=== PATIENT | female | born 2000 ===

== ENCOUNTER 2020-01-07 14:53 | Observation (INO) | payer BC ==
[2020-01-07] MEDS ORDERED: Terbutaline 1 MG/ML SDV SUBCUT PRN (15:30)
[2020-01-07] MEDS ORDERED: Sodium Chloride 0.9% 10 ML Syringe FLUSH PRN (15:30)
[2020-01-07] MEDS ORDERED: Lidocaine 1% 50 ML MDV INJECT PRN (15:30)
[2020-01-07] MEDS ORDERED: Nalbuphine 10 MG/1 ML Vial IVPUSH PRN (15:30)
[2020-01-07] MEDS ORDERED: Sodium Chloride 0.9% 2.5 ML Syringe FLUSH PRN (15:30)
[2020-01-07] MEDS ORDERED: Oxytocin/0.9 % Sodium Chloride 30 UNIT/500 ML BAG IV SCH ×2 (15:30)
[2020-01-07] MEDS ORDERED: Methylergonovine 0.2 MG/1 ML Amp IM PRN (15:30)
[2020-01-07] MEDS ORDERED: Carboprost Tromethamine 250 MCG/1 ML Amp IM PRN (15:30)
[2020-01-07] MEDS ORDERED: Misoprostol 200 MCG Tab PO PRN (15:30)
[2020-01-07] MEDS ORDERED: Sodium Chloride 0.9% 10 ML SDV IV PRN (15:30)
[2020-01-07] MEDS ORDERED: Butorphanol 1 MG/ML SDV IVPUSH PRN (15:30)
[2020-01-07] MEDS ORDERED: Water For Irrigation,Sterile 1,000 ML Container IRR PRN (15:30)
[2020-01-07] MEDS ORDERED: Tranexamic Acid 1,000 MG in Sodium Chloride 0.9% 100 ML IV PRN (15:30)
[2020-01-07] MEDS: Misoprostol 25 MCG (1/4 of 100 MCG) Tab VAG PRN (16:22)
[2020-01-07] MEDS: Misoprostol 25 MCG (1/4 of 100 MCG) Tab PO PRN (16:22)
--- NOTE | 2020-01-07 16:31 | PCM.LDHP ---
L&D History of Present Illness - General Date of Service: 01/07/20 Admit Problem/Dx: Patient Status Order with Admit Dx/Problem 01/07/20 15:31 Patient Status [ADT] Routine Admission Diagnosis/Problem Admission Diagnosis/Problem - planned 01/07/20 16:27 19yo EDC 01/21/2020 38 0/7wks IOL due to elevated BP. B+, RI, GBS neg. Source of Information: Patient History Limitations: Reports: No Limitations - History of Present Illness Improves with: Reports: None Worsens with: Reports: None Associated Symptoms: Reports: N - Related Data Allergies/Adverse Reactions: Allergies Allergy/AdvReac Type Severity Reaction Status Date / Time No Known Allergies Allergy Verified 11/24/19 12:57 Home Medications: Home Meds Vits #93/Iron Fum/FA [ Formula Tablet] 1 each PO DAILY [History] H&P Review of Systems - Review of Systems: Review Of Systems: See Below General: Reports: No Symptoms HEENT: Reports: No Symptoms Pulmonary: Reports: No Symptoms Cardiovascular: Reports: No Symptoms Gastrointestinal: Reports: No Symptoms Genitourinary: Reports: No Symptoms Musculoskeletal: Reports: No Symptoms Skin: Reports: No Symptoms Psychiatric: Reports: No Symptoms Neurological: Reports: No Symptoms Hematologic/Lymphatic: Reports: No Symptoms Immunologic: Reports: No Symptoms L&D Exam - Exam Exam: See Below - Vital Signs Weight: 107.955 kg - OB Specific Contraction Intensity: Mild Movement: Active Heart Tones: Present Heart Tones per Min: 140 Heart Rate (FHR) Variability: Moderate (6-25 bmp) Presentation: Vertex - Vazquez Score Vazquez Score Cervix Position: Midposition Vazquez Score Consistency: Soft Vazquez Score Effacement: 51-70% Vazquez Score Dilation: Closed Vazquez Score Infant's Station: -2 Vazquez Score Total: 6 - Exam General: Alert, Oriented, Cooperative HEENT: Hearing Intact Lungs: Clear to Auscultation, Normal Respiratory Effort. No: Decreased Breath Sounds Cardiovascular: Regular Rate, Regular Rhythm, Normal S1, Normal S2 GI/Abdominal Exam: Soft, Non-Tender Rectal Exam: Deferred Genitourinary: Normal external exam, Normal bimanual exam. No: Cervical fluid, Vaginal bleeding Back Exam: Normal Inspection, Full Range of Motion Extremities: Normal Inspection, Normal Range of Motion, Non-Tender, No Pedal Edema Skin: Warm, Dry, Intact Neurological: Cranial Nerves Intact, Reflexes Equal Bilateral, Normal Speech, Normal Tone, Sensation Intact Psychiatric: Alert, Normal Affect, Normal Mood - Patient Data Lab Results Last 24 hrs: Laboratory Results - last 24 hr 01/07/20 Range/Units 15:20 WBC 9.30 (4.0-11.0) K/uL RBC 5.11 (4.30-5.90) M/uL Hgb 12.9 (12.0-16.0) g/dL Hct 39.9 (36.0-46.0) % MCV 78.1 L (80.0-98.0) fL MCH 25.2 L (27.0-32.0) pg MCHC 32.3 (31.0-37.0) g/dL RDW Std Deviation 39.6 (28.0-62.0) fl RDW Coeff of [place] 14 (11.0-15.0) % Plt Count 284 (150-400) K/uL MPV 9.50 (7.40-12.00) fL Nucleated RBC % 0.0 /100WBC Nucleated RBCs # 0 K/uL Result Diagrams: 01/07/20 15:20 - Problem List (1) Supervision of normal IUP (intrauterine ) in primigravida SNOMED Code(s): 61757958, 176473957, 684825665, 906850126 ICD Code: Z34.00 - ENCNTR FOR SUPRVSN OF NORMAL FIRST , UNSP TRIMESTER Status: Acute Priority: High Current Visit: Yes Qualifiers: Trimester: third trimester Qualified Code(s): Z34.03 - Encounter for supervision of normal first , third trimester (2) Elevated blood pressure affecting in third trimester, antepartum SNOMED Code(s): 57250379, 68307902, 159543099 ICD Code: O16.3 - UNSPECIFIED MATERNAL HYPERTENSION, THIRD TRIMESTER Status : Acute Priority: High Current Visit: Yes Problem List Initiated/Reviewed/Updated: Yes Orders Last 24hrs: Active Orders 24 hr Category Date Time Status Patient Status [ADT] Routine ADT 01/07/20 15:31 Active Communication Order [RC] ASDIRECTED Care 01/07/20 15:31 Active Communication Order [RC] ASDIRECTED Care 01/07/20 15:31 Active Communication Order [RC] ASDIRECTED Care 01/07/20 15:31 Active Heart Tones [RC] CONTINUOUS Care 01/07/20 15:31 Active Non Stress Test [RC] PER UNIT ROUTINE Care 01/07/20 15:31 Active May Shower [RC] ASDIRECTED Care 01/07/20 15:31 Active Notify Provider [RC] PRN Care 01/07/20 15:31 Active Notify Provider [RC] PRN Care 01/07/20 15:31 Active Notify Provider [RC] PRN Care 01/07/20 15:31 Active Notify Provider [RC] STAT Care 01/07/20 15:31 Active Oxygen Therapy [RC] ASDIRECTED Care 01/07/20 15:31 Active Up ad [place]ah [RC] ASDIRECTED Care 01/07/20 15:31 Active Vaginal Exam [RC] PRN Care 01/07/20 15:31 Active Vital Signs [RC] PER UNIT ROUTINE Care 01/07/20 15:31 Active Regular Diet [DIET] Diet 01/07/20 Dinner Active RPR (SYPHILIS SERO) W/ RFLX [REF] Routine Lab 01/07/20 15:20 Received TYPE AND SCREEN [BBK] Routine Lab 01/07/20 15:20 Received Butorphanol [Stadol] Med 01/07/20 15:30 Active 1 mg IVPUSH Q1H PRN Carboprost Tromethamine [Hemabate DS] Med 01/07/20 15:30 Active 250 mcg IM ASDIRECTED PRN Lactated Ringers [Ringers, Lactated] 1,000 ml Med 01/07/20 15:30 Active IV ASDIRECTED Lidocaine 1% [Xylocaine 1%] Med 01/07/20 15:30 Active 50 ml INJECT ONETIME PRN Methylergonovine [Methergine] Med 01/07/20 15:30 Active 0.2 mg IM ASDIRECTED PRN Nalbuphine [Nubain] Med 01/07/20 15:30 Active 10 mg IVPUSH Q1H PRN Oxytocin/0.9 % Sodium Chloride [Oxytocin 30 Unit/500 ML Med 01/07/20 15:30 Active -NS] 30 unit in 500 ml IV TITRATE Oxytocin/0.9 % Sodium Chloride [Oxytocin 30 Unit/500 ML Med 01/07/20 15:30 Active -NS] 30 unit in 500 ml IV TITRATE Sodium Chloride 0.9% [Normal Saline] Med 01/07/20 15:30 Active 10 ml IV ASDIRECTED PRN Sodium Chloride 0.9% [Saline Flush] Med 01/07/20 15:30 Active 10 ml FLUSH ASDIRECTED PRN Sodium Chloride 0.9% [Saline Flush] Med 01/07/20 15:30 Active 2.5 ml FLUSH ASDIRECTED PRN Terbutaline [Brethine] Med 01/07/20 15:30 Active 0.25 mg SUBCUT ASDIRECTED PRN Tranexamic Acid [Cyklokapron] 1,000 mg Med 01/07/20 15:30 Active Sodium Chloride 0.9% [Normal Saline] 100 ml IV ONETIME Water For Irrigation,Sterile [Sterile Water for Med 01/07/20 15:30 Active Irrigation] 1,000 ml IRR ASDIRECTED PRN miSOPROStoL [Cytotec] Med 01/07/20 15:30 Active 200 mcg PO ONETIME PRN miSOPROStoL [Cytotec] Med 01/07/20 15:30 Active 25 mcg PO Q4H PRN miSOPROStoL [Cytotec] Med 01/07/20 15:30 Active 25 mcg VAG Q4H PRN Scalp Electrode [WOMSER] Per Unit Routine Oth 01/07/20 15:31 Ordered Medication Administration Instruction [OM.PC] Q3H Oth 01/07/20 15:45 Ordered Peripheral IV Insertion Adult [OM.PC] Routine Oth 01/07/20 15:31 Ordered Resuscitation Status Routine Resus Stat 01/07/20 15:30 Ordered Medication Orders Butorphanol Tartrate (Stadol) 1 mg IVPUSH Q1H PRN PRN Reason: Pain Carboprost Tromethamine (Hemabate Ds) 250 mcg IM ASDIRECTED PRN PRN Reason: Post Hemorrhage Lactated Ringer's (Ringers, Lactated) 1,000 mls @ 150 mls/hr IV ASDIRECTED ASIYA Oxytocin/Sodium Chloride (Oxytocin 30 Unit/500 Ml-Ns) 30 unit in 500 mls @ 500 mls/hr IV TITRATE ASIYA Oxytocin/Sodium Chloride (Oxytocin 30 Unit/500 Ml-Ns) 30 unit in 500 mls @ 2 mls/hr IV TITRATE ASIYA; Protocol Tranexamic Acid 1,000 mg/ (Sodium Chloride) 110 mls @ 660 mls/hr IV ONETIME PRN PRN Reason: Bleeding Lidocaine HCl (Xylocaine 1%) 50 ml INJECT ONETIME PRN PRN Reason: Laceration repair Methylergonovine Maleate (Methergine) 0.2 mg IM ASDIRECTED PRN PRN Reason: Post Hemorrhage Misoprostol (Cytotec) 200 mcg PO ONETIME PRN PRN Reason: Post Hemorrhage Misoprostol (Cytotec) 25 mcg PO Q4H PRN PRN Reason: Cervical Ripening Last Admin: 01/07/20 16:22 Dose: 25 mcg Misoprostol (Cytotec) 25 mcg VAG Q4H PRN PRN Reason: Cervical Ripening Last Admin: 01/07/20 16:22 Dose: 25 mcg Nalbuphine HCl (Nubain) 10 mg IVPUSH Q1H PRN PRN Reason: Pain (severe 7-10) Sodium Chloride (Saline Flush) 10 ml FLUSH ASDIRECTED PRN PRN Reason: Keep Vein Open Sodium Chloride (Saline Flush) 2.5 ml FLUSH ASDIRECTED PRN PRN Reason: Keep Vein Open Sodium Chloride (Normal Saline) 10 ml IV ASDIRECTED PRN PRN Reason: IV Use Sterile Water (Sterile Water For Irrigation) 1,000 ml IRR ASDIRECTED PRN PRN Reason: delivery Terbutaline Sulfate (Brethine) 0.25 mg SUBCUT ASDIRECTED PRN PRN Reason: Tacysystole Assessment/Plan Comment:: IOL A: 19yo EDC 01/21/2020 38 0/7wks IOL due to elevated BP. B+, RI, GBS neg. P: Admit, cytotec, Pitocin, epidural prn. Anticipate , Dr Flynn updated
[2020-01-08] MEDS: Lactated Ringers 1,000 ML IV SCH ×2 (00:28→12:03)
[2020-01-08] MEDS: Misoprostol 25 MCG (1/4 of 100 MCG) Tab VAG PRN (07:56)
[2020-01-08] MEDS: Misoprostol 25 MCG (1/4 of 100 MCG) Tab PO PRN (07:56)
[2020-01-08] MEDS ORDERED: Promethazine 25 MG/ML SDV IM PRN (08:36)
[2020-01-08] MEDS ORDERED: Morphine 10 MG/ML Syringe IVPUSH ONE (08:38)
--- NOTE | 2020-01-08 09:54 | PCM.PNLD ---
Labor Progress Note - VS & Meds Vital Signs: BP 125/85 (94), HR 97, T 96.6F, Pain 7/10 Active Medications: Current Medications Butorphanol Tartrate (Stadol) 1 mg IVPUSH Q1H PRN PRN Reason: Pain Carboprost Tromethamine (Hemabate Ds) 250 mcg IM ASDIRECTED PRN PRN Reason: Post Hemorrhage Lactated Ringer's (Ringers, Lactated) 1,000 mls @ 150 mls/hr IV ASDIRECTED ASIYA Last Admin: 01/08/20 00:28 Dose: 150 mls/hr Oxytocin/Sodium Chloride (Oxytocin 30 Unit/500 Ml-Ns) 30 unit in 500 mls @ 500 mls/hr IV TITRATE ASIYA Oxytocin/Sodium Chloride (Oxytocin 30 Unit/500 Ml-Ns) 30 unit in 500 mls @ 2 mls/hr IV TITRATE ASIYA; Protocol Last Titration: 01/08/20 07:42 Dose: 0 munits/min, 0 mls/hr Tranexamic Acid 1,000 mg/ (Sodium Chloride) 110 mls @ 660 mls/hr IV ONETIME PRN PRN Reason: Bleeding Lidocaine HCl (Xylocaine 1%) 50 ml INJECT ONETIME PRN PRN Reason: Laceration repair Methylergonovine Maleate (Methergine) 0.2 mg IM ASDIRECTED PRN PRN Reason: Post Hemorrhage Misoprostol (Cytotec) 200 mcg PO ONETIME PRN PRN Reason: Post Hemorrhage Misoprostol (Cytotec) 25 mcg PO Q4H PRN PRN Reason: Cervical Ripening Last Admin: 01/08/20 07:56 Dose: 25 mcg Misoprostol (Cytotec) 25 mcg VAG Q4H PRN PRN Reason: Cervical Ripening Last Admin: 01/08/20 07:56 Dose: 25 mcg Nalbuphine HCl (Nubain) 10 mg IVPUSH Q1H PRN PRN Reason: Pain (severe 7-10) Promethazine HCl (Phenergan) 25 mg IM Q4H PRN PRN Reason: Sleep Last Admin: 01/08/20 09:03 Dose: 25 mg Sodium Chloride (Saline Flush) 10 ml FLUSH ASDIRECTED PRN PRN Reason: Keep Vein Open Sodium Chloride (Saline Flush) 2.5 ml FLUSH ASDIRECTED PRN PRN Reason: Keep Vein Open Sodium Chloride (Normal Saline) 10 ml IV ASDIRECTED PRN PRN Reason: IV Use Sterile Water (Sterile Water For Irrigation) 1,000 ml IRR ASDIRECTED PRN PRN Reason: delivery Terbutaline Sulfate (Brethine) 0.25 mg SUBCUT ASDIRECTED PRN PRN Reason: Tacysystole Discontinued Medications Morphine Sulfate (Morphine) 5 mg IVPUSH ONETIME ONE Stop: 01/08/20 08:39 Last Admin: 01/08/20 09:01 Dose: 5 mg - Uterine Contractions Uterine Monitoring Mode: External [place] Contraction Frequency (min): 3-6 Contraction Duration (sec): 60-90 Contraction Intensity: Mild to Moderate Uterine Resting Tone: Soft - Monitoring Monitor Mode: External Ultrasound Heart Rate (FHR) Baseline: 135 Heart Rate (FHR) Variability: Moderate (6-25 bmp) Accelerations: Present, 15x15 Decelerations: None Strip Review: Category I - Vaginal Exam Dilation (cm): 3-4 Effacement (Percent): 50 Station: -2 Sterile Vaginal Exam Performed By: Estrella Bob Vaginal Exam Comment: [id number] - Labor Progress (Free Text) Labor Progress: Jessica is a 19 yo that is here for IOL for new onset HTN in office yesterday. B+, RI, GBS Neg. Patient tearful at bedside "I haven't slept at all and I don't know why I'm crying. It just hurts.". Therapeutic rest regimen 25 mg phenergan IM + 5 mg morphine IV simultaneously once. Continue with cytotec to pitocin regimen. Dr. Flynn notified.
--- NOTE | 2020-01-08 17:06 | PCM.DCSUM1 ---
Discharge Summary - Hospital Course Free Text/Narrative:: BP 117/62 (75); HR 105; T 97.4; 99% on RA; Pain 2/10 HPI Initial Comments: Jessica is a 19 yo that was here for IOL for new onset hypertension in in office yesterday. BPs today WNL. Membranes intact, patient declines AROM. Pitocin titration attempted x 2, max pitocin at 24 milliunits/ min. SVE 4/70/-2, soft and stretchy, non-laboring. Provider discussed RBAS of continuing IOL vs D/C home today. Patient and partner have decided to be discharged home today. S/Ss of pre-e, labor, ROM discussed. Warning S/Ss, when to call for help discussed. Patient has not questions or concerns at this time and verbalizes understanding. CMP, UA, random P/C ratio collected prior to D/C. RTO on Saturday for BP check, review of labs, and develop POC. - Discharge Data Discharge Date: 01/08/20 Discharge Disposition: Home, Self-Care 01 Condition: Good - Referral to Home Health Primary Care Physician: PCP None - Discharge Diagnosis/Problem(s) (1) Elevated blood pressure affecting in third trimester, antepartum SNOMED Code(s): 49919026, 19030035, 601895829 ICD Code: O16.3 - UNSPECIFIED MATERNAL HYPERTENSION, THIRD TRIMESTER Status : Acute Priority: High Current Visit: Yes (2) Supervision of normal IUP (intrauterine ) in primigravida SNOMED Code(s): 14893274, 947025012, 737774088, 212389026 ICD Code: Z34.00 - ENCNTR FOR SUPRVSN OF NORMAL FIRST , UNSP TRIMESTER Status: Acute Priority: High Current Visit: Yes Qualifiers: Trimester: third trimester Qualified Code(s): Z34.03 - Encounter for supervision of normal first , third trimester - Patient Instructions Diet: Regular Diet as Tolerated, Drink 8-10+ Glasses/Day Activity: As Tolerated Driving: May Drive Today Showering/Bathing: May Shower - Discharge Plan *PRESCRIPTION DRUG MONITORING PROGRAM REVIEWED*: No *COPY OF PRESCRIPTION DRUG MONITORING REPORT IN PATIENT LAUREN: No Home Medications: Home Meds Vits #93/Iron Fum/FA [ Formula Tablet] 1 each PO DAILY [History] Oxygen Therapy Mode: Room Air Referrals: [facility] [Outside] PaulinoEstrella, [place]OR[place] [Mid-] - 02/18/20 1:30 pm - Discharge Summary/Plan Comment DC Time >30 min.: No (February D/C now) Discharge Summary/Plan Comment: Jessica is a 19 yo that was here for IOL for new onset hypertension in in office yesterday. BPs today WNL. Membranes intact, patient declines AROM. Pitocin titration attempted x 2, max pitocin at 24 milliunits/ min. SVE /-2, soft and stretchy, non-laboring. Provider discussed RBAS of continuing IOL vs D/C home today. Patient and partner have decided to be discharged home today. S/Ss of pre-e, labor, ROM discussed. Warning S/Ss, when to call for help discussed. Patient has not questions or concerns at this time and verbalizes understanding. CMP, UA, random P/C ratio collected prior to D/C. RTO on Saturday for BP check, review of labs, and develop POC. - General Info Date of Service: 01/08/20 Admission Dx/Problem (Free Text: Patient Status Order with Admit Dx/Problem 01/07/20 15:31 Patient Status [ADT] Routine Admission Diagnosis/Problem Admission Diagnosis/Problem - planned 01/07/20 16:27 19yo EDC 01/21/2020 38 0/7wks IOL due to elevated BP. B+, RI, GBS neg. Functional Status: Reports: Pain Controlled - Review of Systems General: Reports: No Symptoms HEENT: Reports: No Symptoms Pulmonary: Reports: No Symptoms Cardiovascular: Reports: No Symptoms Gastrointestinal: Reports: No Symptoms Genitourinary: Reports: No Symptoms Musculoskeletal: Reports: No Symptoms Skin: Reports: No Symptoms Neurological: Reports: No Symptoms Psychiatric: Reports: No Symptoms - Patient Data Weight - Most Recent: 238 lb Med Orders - Current: Current Medications Butorphanol Tartrate (Stadol) 1 mg IVPUSH Q1H PRN PRN Reason: Pain Carboprost Tromethamine (Hemabate Ds) 250 mcg IM ASDIRECTED PRN PRN Reason: Post Hemorrhage Lactated Ringer's (Ringers, Lactated) 1,000 mls @ 150 mls/hr IV ASDIRECTED ASIYA Last Admin: 01/08/20 12:03 Dose: 150 mls/hr Oxytocin/Sodium Chloride (Oxytocin 30 Unit/500 Ml-Ns) 30 unit in 500 mls @ 500 mls/hr IV TITRATE ASIYA Oxytocin/Sodium Chloride (Oxytocin 30 Unit/500 Ml-Ns) 30 unit in 500 mls @ 2 mls/hr IV TITRATE ASIYA; Protocol Last Titration: 01/08/20 16:25 Dose: 22 munits/min, 22 mls/hr Tranexamic Acid 1,000 mg/ (Sodium Chloride) 110 mls @ 660 mls/hr IV ONETIME PRN PRN Reason: Bleeding Lidocaine HCl (Xylocaine 1%) 50 ml INJECT ONETIME PRN PRN Reason: Laceration repair Methylergonovine Maleate (Methergine) 0.2 mg IM ASDIRECTED PRN PRN Reason: Post Hemorrhage Misoprostol (Cytotec) 200 mcg PO ONETIME PRN PRN Reason: Post Hemorrhage Misoprostol (Cytotec) 25 mcg PO Q4H PRN PRN Reason: Cervical Ripening Last Admin: 01/08/20 07:56 Dose: 25 mcg Misoprostol (Cytotec) 25 mcg VAG Q4H PRN PRN Reason: Cervical Ripening Last Admin: 01/08/20 07:56 Dose: 25 mcg Nalbuphine HCl (Nubain) 10 mg IVPUSH Q1H PRN PRN Reason: Pain (severe 7-10) Promethazine HCl (Phenergan) 25 mg IM Q4H PRN PRN Reason: Sleep Last Admin: 01/08/20 09:03 Dose: 25 mg Sodium Chloride (Saline Flush) 10 ml FLUSH ASDIRECTED PRN PRN Reason: Keep Vein Open Sodium Chloride (Saline Flush) 2.5 ml FLUSH ASDIRECTED PRN PRN Reason: Keep Vein Open Sodium Chloride (Normal Saline) 10 ml IV ASDIRECTED PRN PRN Reason: IV Use Sterile Water (Sterile Water For Irrigation) 1,000 ml IRR ASDIRECTED PRN PRN Reason: delivery Terbutaline Sulfate (Brethine) 0.25 mg SUBCUT ASDIRECTED PRN PRN Reason: Tacysystole Discontinued Medications Morphine Sulfate (Morphine) 5 mg IVPUSH ONETIME ONE Stop: 01/08/20 08:39 Last Admin: 01/08/20 09:01 Dose: 5 mg - Exam General: Reports: Alert, Oriented HEENT: Reports: Pupils Equal, Pupils Reactive Neck: Reports: Supple Lungs: Reports: Clear to Auscultation, Normal Respiratory Effort Cardiovascular: Reports: Regular Rate, Regular Rhythm GI/Abdominal Exam: Normal Bowel Sounds, Soft, Non-Tender, No Organomegaly, No Distention, No Abnormal Bruit, Other (Gravid uterus) (Female) Exam: Normal External Exam, Normal Speculum Exam, Normal Bimanual Exam Rectal (Female) Exam: Deferred Back Exam: Reports: Normal Inspection, Full Range of Motion Extremities: Normal Inspection, Normal Range of Motion, Non-Tender, No Pedal Edema, Normal Capillary Refill Skin: Reports: Warm, Dry, Intact Neurological: Reports: No New Focal Deficit Psy/Mental Status: Reports: Alert, Normal Affect, Normal Mood Discharge Operative/Procedures - Procedures Performed LP Indication: CSF analysis Arterial Line Indication: hemodynamic monitoring Chest Tube Indication: pneumothorax Thoracentesis Indication: pleural effusion Paracentesis Indication: ascites
[2020-01-08 17:07] LABS: BLOOD UREA NITROGEN,BUN 12 mg/dL (7.0-18.0); CARBON DIOXIDE,CO2 20.4 mmol/L (21.0-32.0); CHLORIDE,CL 103 mmol/L (98-107); GLUCOSE RANDOM 98 mg/dL (74-106); POTASSIUM,K 5.6 mmol/L (3.5-5.1); SODIUM,NA 138 mmol/L (136-145)
[2020-01-09] MEDS ORDERED: Aspirin 81 MG Tab.Chew PO SCH (09:00)
== END 2020-01-08 17:30 | disposition home or self-care (01) ==
LOC: MW.OB 14:53
PROVIDERS: ADMIT Obstetrics & Gynecology; ATTEND Obstetrics & Gynecology
DX: O16.3 Unspecified maternal hypertension, third trimester (principal); Z3A.38 38 weeks gestation of pregnancy; Z79.82 Long term (current) use of aspirin
CPT/HCPCS: 36415; 80053; 81003; 82570; 84156; 85027; 86592; 86593; 86850; 86900; 86901; 96361; 96365; 96366; 96372; 96375; A9270; G0378; J2270; J2550; J2590; J7120

== ENCOUNTER 2020-01-22 01:30 | Inpatient (IN) | payer BC ==
[2020-01-22] MEDS ORDERED: Misoprostol 25 MCG (1/4 of 100 MCG) Tab VAG PRN ×2 (01:47)
[2020-01-22] MEDS ORDERED: Terbutaline 1 MG/ML SDV SUBCUT PRN (01:47)
[2020-01-22] MEDS ORDERED: Misoprostol 25 MCG (1/4 of 100 MCG) Tab PO ONE (01:48)
[2020-01-22] MEDS ORDERED: Oxytocin/0.9 % Sodium Chloride 30 UNIT/500 ML BAG IV SCH ×2 (02:00→02:15)
[2020-01-22] MEDS ORDERED: Sodium Chloride 0.9% 10 ML SDV IV PRN (02:09)
[2020-01-22] MEDS ORDERED: Sodium Chloride 0.9% 2.5 ML Syringe FLUSH PRN (02:09)
[2020-01-22] MEDS ORDERED: Water For Irrigation,Sterile 1,000 ML Container IRR PRN (02:09)
[2020-01-22] MEDS ORDERED: Methylergonovine 0.2 MG/1 ML Amp IM PRN (02:09)
[2020-01-22] MEDS ORDERED: Tranexamic Acid 1,000 MG in Sodium Chloride 0.9% 100 ML IV PRN (02:09)
[2020-01-22] MEDS ORDERED: Nalbuphine 10 MG/1 ML Vial IVPUSH PRN (02:09)
[2020-01-22] MEDS ORDERED: Carboprost Tromethamine 250 MCG/1 ML Amp IM PRN (02:09)
[2020-01-22] MEDS ORDERED: Misoprostol 200 MCG Tab PO PRN (02:09)
[2020-01-22] MEDS ORDERED: Sodium Chloride 0.9% 10 ML Syringe FLUSH PRN (02:09)
[2020-01-22] MEDS ORDERED: Lidocaine 1% 50 ML MDV INJECT PRN (02:09)
[2020-01-22] MEDS ORDERED: Butorphanol 1 MG/ML SDV IVPUSH PRN (02:09)
[2020-01-22] MEDS: Lactated Ringers 1,000 ML IV SCH ×3 (08:10→15:15)
[2020-01-22] MEDS ORDERED: fentaNYL 100 MCG/2 ML SDV ONE (08:17)
[2020-01-22] MEDS ORDERED: Ropivacaine HCl/PF 100 ML ONE (08:17)
--- NOTE | 2020-01-22 08:20 | PCM.LDHP ---
L&D History of Present Illness - General Date of Service: 01/22/20 Admit Problem/Dx: Patient Status Order with Admit Dx/Problem 01/22/20 02:09 Patient Status [ADT] Routine Admission Diagnosis/Problem Admission Diagnosis/Problem 01/22/20 08:14 19yo EDC 01/21/2020 40 1/7wks. IOL term and occ elevated BP. B+, RI, GBS neg. Source of Information: Patient History Limitations: Reports: No Limitations - History of Present Illness Timing/Duration: Reports: minutes: Location, : Reports: Abdomen Quality: Reports: Ache, Burning, Stabbing Severity: Moderate Improves with: Reports: None Worsens with: Reports: None Associated Symptoms: Reports: vaginal fluid (AROM clear). 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: Musculoskeletal History: Reports: None Neurological History: Reports: Migraines Psychiatric History: Reports: None Endocrine/Metabolic History: Reports: Obesity/BMI 30+ Hematologic History: Reports: None Immunologic History: Reports: None Oncologic (Cancer) History: Reports: None Dermatologic History: Reports: None - Infectious Disease History Infectious Disease History: Reports: None - Past Surgical History Other HEENT Surgeries/Procedures: Bilateral PE tube placement as a child GI Surgical History: Reports: None Female Surgical History: Reports: None Endocrine Surgical History: Reports: None Musculoskeletal Surgical History: Reports: None Social & Family History - Family History Family Medical History: Noncontributory HEENT: Reports: None Cardiac: Reports: Pacemaker, Other (See Below) Other Cardiac Family History: Heart disease Respiratory: Reports: None GI: Reports: None : Reports: None OBGYN: Reports: Musculoskeletal: Reports: None Neurological: Reports: Migraines Psychiatric: Reports: Bipolar Endocrine/Metabolic: Reports: None Hematologic: Reports: None Immunologic: Reports: None Dermatologic: Reports: None Oncologic: Reports: None - Tobacco Use Smoking Status *Q: Never Smoker Second Hand Smoke Exposure: No - Caffeine Use Caffeine Use: Reports: None - Recreational Drug Use Recreational Drug Use: No H&P Review of Systems - Review of Systems: Review Of Systems: See Below General: Reports: No Symptoms HEENT: Reports: No Symptoms Pulmonary: Reports: No Symptoms Cardiovascular: Reports: No Symptoms Gastrointestinal: Reports: No Symptoms Genitourinary: Reports: No Symptoms Musculoskeletal: Reports: No Symptoms Skin: Reports: No Symptoms Psychiatric: Reports: No Symptoms Neurological: Reports: No Symptoms Hematologic/Lymphatic: Reports: No Symptoms Immunologic: Reports: No Symptoms L&D Exam - Exam Exam: See Below - Vital Signs Weight: 107.048 kg - OB Specific Contraction Intensity: Moderate to Strong Movement: Active Heart Tones: Present Heart Tones per Min: 130 Presentation: Vertex - Vazquez Score Vazquez Score Cervix Position: Midposition Vazquez Score Consistency: Soft Vazquez Score Effacement: >80% Vazquez Score Dilation: > 5 cm Vazquez Score 's Station: -1 ,0 Vazquez Score Total: 11 - Exam HEENT: Hearing Intact Lungs: Normal Respiratory Effort GI/Abdominal Exam: Soft, Non-Tender, Pelvis Stable Genitourinary: Normal external exam, Normal bimanual exam, Cervical dilitation, Cervical fluid Back Exam: Normal Inspection, Full Range of Motion Extremities: Normal Inspection, Normal Range of Motion, Non-Tender, No Pedal Edema Skin: Warm, Dry, Intact Neurological: Cranial Nerves Intact, Reflexes Equal Bilateral, Strength Equal Bilateral, Normal Gait, Normal Speech, Sensation Intact Psychiatric: Alert, Normal Affect, Normal Mood - Patient Data Lab Results Last 24 hrs: Laboratory Results - last 24 hr 01/22/20 01/22/20 Range/Units 02:00 02:00 WBC 11.80 H (4.0-11.0) K/uL RBC 5.08 (4.30-5.90) M/uL Hgb 12.7 (12.0-16.0) g/dL Hct 39.8 (36.0-46.0) % MCV 78.3 L (80.0-98.0) fL MCH 25.0 L (27.0-32.0) pg MCHC 31.9 (31.0-37.0) g/dL RDW Std Deviation 43.3 (28.0-62.0) fl RDW Coeff of Devon 15 (11.0-15.0) % Plt Count 273 (150-400) K/uL MPV 9.80 (7.40-12.00) fL Nucleated RBC % 0.0 /100WBC Nucleated RBCs # 0 K/uL Blood Type B POSITIVE Antibody Screen NEGATIVE Result Diagrams: 01/22/20 02:00 - Problem List (1) Supervision of normal IUP (intrauterine ) in primigravida SNOMED Code(s): 81574866, 700597618, 722692388, 121269117 ICD Code: Z34.00 - ENCNTR FOR SUPRVSN OF NORMAL FIRST , UNSP TRIMESTER Status: Acute Priority: High Current Visit: No Qualifiers: Trimester: third trimester Problem List Initiated/Reviewed/Updated: Yes Orders Last 24hrs: Active Orders 24 hr Category Date Time Status Patient Status [ADT] Routine ADT 01/22/20 02:09 Active Bedrest Bathroom Privileges [RC] ASDIRECTED Care 01/22/20 01:47 Active Communication Order [RC] ASDIRECTED Care 01/22/20 01:47 Active Communication Order [RC] ASDIRECTED Care 01/22/20 01:47 Active Communication Order [RC] ASDIRECTED Care 01/22/20 01:47 Active Heart Tones [RC] CONTINUOUS Care 01/22/20 02:09 Active Non Stress Test [RC] PER UNIT ROUTINE Care 01/22/20 02:09 Active May Shower [RC] ASDIRECTED Care 01/22/20 02:09 Active Notify Provider [RC] PRN Care 01/22/20 01:47 Active Notify Provider [RC] PRN Care 01/22/20 01:47 Active Notify Provider [RC] PRN Care 01/22/20 02:09 Active Notify Provider [RC] STAT Care 01/22/20 01:47 Active Up ad Myah [RC] ASDIRECTED Care 01/22/20 02:09 Active Vaginal Exam [RC] PRN Care 01/22/20 01:47 Active Vaginal Exam [RC] PRN Care 01/22/20 02:09 Active Vital Signs [RC] PER UNIT ROUTINE Care 01/22/20 01:47 Active Vital Signs [RC] PER UNIT ROUTINE Care 01/22/20 02:09 Active RPR (SYPHILIS SERO) W/ RFLX [REF] Routine Lab 01/22/20 02:00 Received Butorphanol [Stadol] Med 01/22/20 02:09 Active 1 mg IVPUSH Q1H PRN Carboprost Tromethamine [Hemabate DS] Med 01/22/20 02:09 Active 250 mcg IM ASDIRECTED PRN Lactated Ringers [Ringers, Lactated] 1,000 ml Med 01/22/20 02:15 Active IV ASDIRECTED Lidocaine 1% [Xylocaine 1%] Med 01/22/20 02:09 Active 50 ml INJECT ONETIME PRN Methylergonovine [Methergine] Med 01/22/20 02:09 Active 0.2 mg IM ASDIRECTED PRN Nalbuphine [Nubain] Med 01/22/20 02:09 Active 10 mg IVPUSH Q1H PRN Oxytocin/0.9 % Sodium Chloride [Oxytocin 30 Unit/500 ML Med 01/22/20 02:00 Active -NS] 30 unit in 500 ml IV TITRATE Oxytocin/0.9 % Sodium Chloride [Oxytocin 30 Unit/500 ML Med 01/22/20 02:15 Active -NS] 30 unit in 500 ml IV TITRATE Sodium Chloride 0.9% [Normal Saline] Med 01/22/20 02:09 Active 10 ml IV ASDIRECTED PRN Sodium Chloride 0.9% [Saline Flush] Med 01/22/20 02:09 Active 10 ml FLUSH ASDIRECTED PRN Sodium Chloride 0.9% [Saline Flush] Med 01/22/20 02:09 Active 2.5 ml FLUSH ASDIRECTED PRN Terbutaline [Brethine] Med 01/22/20 01:47 Active 0.25 mg SUBCUT ASDIRECTED PRN Tranexamic Acid [Cyklokapron] 1,000 mg Med 01/22/20 02:09 Active Sodium Chloride 0.9% [Normal Saline] 100 ml IV ONETIME Water For Irrigation,Sterile [Sterile Water for Med 01/22/20 02:09 Active Irrigation] 1,000 ml IRR ASDIRECTED PRN miSOPROStoL [Cytotec] Med 01/22/20 02:09 Active 200 mcg PO ONETIME PRN miSOPROStoL [Cytotec] Med 01/22/20 01:47 Active 25 mcg VAG ONETIME PRN miSOPROStoL [Cytotec] Med 01/22/20 01:47 Active 25 mcg VAG Q4H PRN Scalp Electrode [WOMSER] Per Unit Routine Oth 01/22/20 02:09 Ordered Medication Administration Instruction [OM.PC] Q3H Oth 01/22/20 02:00 Ordered Peripheral IV Insertion Adult [OM.PC] Routine Oth 01/22/20 02:09 Ordered Resuscitation Status Routine Resus Stat 01/22/20 02:09 Ordered Medication Orders Butorphanol Tartrate (Stadol) 1 mg IVPUSH Q1H PRN PRN Reason: Pain Carboprost Tromethamine (Hemabate Ds) 250 mcg IM ASDIRECTED PRN PRN Reason: Post Hemorrhage Oxytocin/Sodium Chloride (Oxytocin 30 Unit/500 Ml-Ns) 30 unit in 500 mls @ 2 mls/hr IV TITRATE ASIYA; Protocol Lactated Ringer's (Ringers, Lactated) 1,000 mls @ 150 mls/hr IV ASDIRECTED ASIYA Oxytocin/Sodium Chloride (Oxytocin 30 Unit/500 Ml-Ns) 30 unit in 500 mls @ 500 mls/hr IV TITRATE ASIYA Tranexamic Acid 1,000 mg/ (Sodium Chloride) 110 mls @ 660 mls/hr IV ONETIME PRN PRN Reason: Bleeding Lidocaine HCl (Xylocaine 1%) 50 ml INJECT ONETIME PRN PRN Reason: Laceration repair Methylergonovine Maleate (Methergine) 0.2 mg IM ASDIRECTED PRN PRN Reason: Post Hemorrhage Misoprostol (Cytotec) 25 mcg VAG ONETIME PRN PRN Reason: Cervical Ripening Last Admin: 01/22/20 02:27 Dose: 25 mcg Misoprostol (Cytotec) 25 mcg VAG Q4H PRN PRN Reason: Cervical Ripening Misoprostol (Cytotec) 200 mcg PO ONETIME PRN PRN Reason: Post Hemorrhage Nalbuphine HCl (Nubain) 10 mg IVPUSH Q1H PRN PRN Reason: Pain (severe 7-10) Sodium Chloride (Saline Flush) 10 ml FLUSH ASDIRECTED PRN PRN Reason: Keep Vein Open Sodium Chloride (Saline Flush) 2.5 ml FLUSH ASDIRECTED PRN PRN Reason: Keep Vein Open Sodium Chloride (Normal Saline) 10 ml IV ASDIRECTED PRN PRN Reason: IV Use Sterile Water (Sterile Water For Irrigation) 1,000 ml IRR ASDIRECTED PRN PRN Reason: delivery Terbutaline Sulfate (Brethine) 0.25 mg SUBCUT ASDIRECTED PRN PRN Reason: Tacysystole Assessment/Plan Comment:: IOL A: 19yo EDC 01/21/2020 40 1/7wks. IOL term and occ elevated BP. B+, RI, GBS neg. P: Admit, Cytotec to pitocin. AROM clear fluid. Epidural now. Anticipate . Dr Flynn and Dora Salazar CNM updated on pt care. Martin to take over care.
[2020-01-22] MEDS ORDERED: Lidocaine 1% 50 ML MDV ONE (08:33)
--- NOTE | 2020-01-22 08:50 | PCM.PREANE ---
Preanesthetic Assessment - Anesthesia/Transfusion/Family Hx Anesthesia History: Prior Anesthesia Without Reaction Family History of Anesthesia Reaction: No Transfusion History: No Prior Transfusion(s) - Physical Assessment NPO Status Date: 01/22/20 NPO Status Time: 07:00 Height: 1.6 m Weight: 107.048 kg ASA Class: 2 - Lab Values: Laboratory Last Values WBC 11.80 K/uL (4.0-11.0) H 01/22/20 02:00 RBC 5.08 M/uL (4.30-5.90) 01/22/20 02:00 Hgb 12.7 g/dL (12.0-16.0) 01/22/20 02:00 Hct 39.8 % (36.0-46.0) 01/22/20 02:00 MCV 78.3 fL (80.0-98.0) L 01/22/20 02:00 MCH 25.0 pg (27.0-32.0) L 01/22/20 02:00 MCHC 31.9 g/dL (31.0-37.0) 01/22/20 02:00 RDW Std Deviation 43.3 fl (28.0-62.0) 01/22/20 02:00 RDW Coeff of Devon 15 % (11.0-15.0) 01/22/20 02:00 Plt Count 273 K/uL (150-400) 01/22/20 02:00 MPV 9.80 fL (7.40-12.00) 01/22/20 02:00 Nucleated RBC % 0.0 /100WBC 01/22/20 02:00 Nucleated RBCs # 0 K/uL 01/22/20 02:00 Blood Type B POSITIVE 01/22/20 02:00 Antibody Screen NEGATIVE 01/22/20 02:00 - Allergies Allergies/Adverse Reactions: Allergies Allergy/AdvReac Type Severity Reaction Status Date / Time No Known Allergies Allergy Verified 11/24/19 12:57 - Acknowledgements Anesthesia Type Planned: Epidural Pt an Appropriate Candidate for the Planned Anesthesia: Yes Alternatives and Risks of Anesthesia Discussed w Pt/Guardian: Yes Pt/Guardian Understands and Agrees with Anesthesia Plan: Yes PreAnesthesia Questionnaire HEENT History: Reports: Impaired Vision Cardiovascular History: Reports: None Respiratory History: Reports: None Gastrointestinal History: Reports: None Genitourinary History: Reports: None 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: Musculoskeletal History: Reports: None Neurological History: Reports: Migraines Psychiatric History: Reports: None Endocrine/Metabolic History: Reports: Obesity/BMI 30+ Hematologic History: Reports: None Immunologic History: Reports: None Oncologic (Cancer) History: Reports: None Dermatologic History: Reports: None - Infectious Disease History Infectious Disease History: Reports: None - Past Surgical History Other HEENT Surgeries/Procedures: Bilateral PE tube placement as a child GI Surgical History: Reports: None Female Surgical History: Reports: None Endocrine Surgical History: Reports: None Musculoskeletal Surgical History: Reports: None - SUBSTANCE USE Smoking Status *Q: Never Smoker Second Hand Smoke Exposure: No Recreational Drug Use History: No - HOME MEDS Home Medications: Home Meds Vits #93/Iron Fum/FA [ Formula Tablet] 1 each PO DAILY [History] Aspirin 81 mg PO DAILY 30 Days #30 tab.chew 01/08/20 [Rx] - CURRENT (IN HOUSE) MEDS Current Meds: Current Medications Butorphanol Tartrate (Stadol) 1 mg IVPUSH Q1H PRN PRN Reason: Pain Carboprost Tromethamine (Hemabate Ds) 250 mcg IM ASDIRECTED PRN PRN Reason: Post Hemorrhage Oxytocin/Sodium Chloride (Oxytocin 30 Unit/500 Ml-Ns) 30 unit in 500 mls @ 2 mls/hr IV TITRATE ASIYA; Protocol Lactated Ringer's (Ringers, Lactated) 1,000 mls @ 150 mls/hr IV ASDIRECTED ASIYA Oxytocin/Sodium Chloride (Oxytocin 30 Unit/500 Ml-Ns) 30 unit in 500 mls @ 500 mls/hr IV TITRATE ASIYA Tranexamic Acid 1,000 mg/ (Sodium Chloride) 110 mls @ 660 mls/hr IV ONETIME PRN PRN Reason: Bleeding Lidocaine HCl (Xylocaine 1%) 50 ml INJECT ONETIME PRN PRN Reason: Laceration repair Methylergonovine Maleate (Methergine) 0.2 mg IM ASDIRECTED PRN PRN Reason: Post Hemorrhage Misoprostol (Cytotec) 25 mcg VAG ONETIME PRN PRN Reason: Cervical Ripening Last Admin: 01/22/20 02:27 Dose: 25 mcg Misoprostol (Cytotec) 25 mcg VAG Q4H PRN PRN Reason: Cervical Ripening Misoprostol (Cytotec) 200 mcg PO ONETIME PRN PRN Reason: Post Hemorrhage Nalbuphine HCl (Nubain) 10 mg IVPUSH Q1H PRN PRN Reason: Pain (severe 7-10) Sodium Chloride (Saline Flush) 10 ml FLUSH ASDIRECTED PRN PRN Reason: Keep Vein Open Sodium Chloride (Saline Flush) 2.5 ml FLUSH ASDIRECTED PRN PRN Reason: Keep Vein Open Sodium Chloride (Normal Saline) 10 ml IV ASDIRECTED PRN PRN Reason: IV Use Sterile Water (Sterile Water For Irrigation) 1,000 ml IRR ASDIRECTED PRN PRN Reason: delivery Terbutaline Sulfate (Brethine) 0.25 mg SUBCUT ASDIRECTED PRN PRN Reason: Tacysystole Discontinued Medications Fentanyl (Sublimaze) Confirm Administered Dose 100 mcg .ROUTE .STK-MED ONE Stop: 01/22/20 08:18 Ropivacaine (Naropin 0.2%) Confirm Administered Dose 100 mls @ as directed .ROUTE .STK-MED ONE Stop: 01/22/20 08:18 Lidocaine HCl (Xylocaine 1%) Confirm Administered Dose 50 ml .ROUTE .STK-MED ONE Stop: 01/22/20 08:34 Misoprostol (Cytotec) 25 mcg PO ONETIME ONE Stop: 01/22/20 01:49 Last Admin: 01/22/20 02:27 Dose: 25 mcg
--- NOTE | 2020-01-22 08:53 | PCM.PRNOTE ---
- Free Text/Narrative Note: Anes NOte Patietn requests epidural for L&D. Sitting position, level L3-L4 midline approach. Sterile technique. Chloraprep scrub to lumbar area. Sterile fenestrated drape applied. Epidural space easily achieved using EMILIA technique. EMILIA at 6 cm. Cath threaded 6 cm with ease. Cath secured at skin at 14 cm using sterile clear adhesive dressing. 0840 Test 3 cc 1.5% lido with epi negative. 0843 Load 10 cc 0.2% ropivicaine with 1 mcg cc fentanyl in slow divided doses. 0847 Pump started with 90 cc same solution. Rate is 8 cc hr with 6 cc q 20 mi prn bolus. 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
[2020-01-22] MEDS ORDERED: Oxytocin/0.9 % Sodium Chloride 30 UNIT/500 ML BAG ONE ×2 (10:10→17:21)
--- NOTE | 2020-01-22 17:20 | PCM.DEL ---
L & D Note - General Info Date of Service: 01/22/20 Mother's Due Date: 01/21/20 - Delivery Note Labor: Induced by Oxytocin Delivery Outcome: Livebirth Infant Delivery Mode: Spontaneous Presentation: Vertex Nuchal Cord: Present, Reduced (x1) Anesthesia Type: Epidural Amniotic Fluid Description: Clear Episiotomy Type: None Laceration: None Placenta: Intact, Spontaneous Cord: 3 Vessels Second Stage Interventions: Reports: Second Nurse Assessed Progress of Descent, Second Nurse Reviewed Contraction Pattern, Second Nurse Reviewed Heart Tones, Encouragement Given, Pushing Effectively, Pushing, Pulls Own Legs Back Delivery Comments (Free Text/Narrative):: viable female at 40 1/7 weeks. Prior to delivery, called for anesthesia, peds, and Dr. Flynn due to bradycardia and difficulty tracing. Head delivered with good pushing. Shoulders and body followed easily after. Cord immediately clamped and cut and baby moved to warmer for assessment. APGARs pending. Placenta delivered grossly intact, 3VC, EBL 500 mL. Perineum intact. Bimanual exam normal. Pitocin to IVF. Fundus firm. Patient left in stable condition with nurse at bedside for assessment. - General Info Date of Service: 01/22/20 Admission Dx/Problem (Free Text): Patient Status Order with Admit Dx/Problem 01/22/20 02:09 Patient Status [ADT] Routine Admission Diagnosis/Problem Admission Diagnosis/Problem 01/22/20 08:14 19yo EDC 01/21/2020 40 1/7wks. IOL term and occ elevated BP. B+, RI, GBS neg. Functional Status: Reports: Pain Controlled - Review of Systems General: Reports: No Symptoms HEENT: Reports: No Symptoms Pulmonary: Reports: No Symptoms Cardiovascular: Reports: No Symptoms Gastrointestinal: Reports: No Symptoms Genitourinary: Reports: No Symptoms Musculoskeletal: Reports: No Symptoms Skin: Reports: No Symptoms Neurological: Reports: No Symptoms Psychiatric: Reports: No Symptoms - Patient Data Weight - Most Recent: 236 lb Lab Results Last 24 Hours: Laboratory Results - last 24 hr 01/22/20 01/22/20 Range/Units 02:00 02:00 WBC 11.80 H (4.0-11.0) K/uL RBC 5.08 (4.30-5.90) M/uL Hgb 12.7 (12.0-16.0) g/dL Hct 39.8 (36.0-46.0) % MCV 78.3 L (80.0-98.0) fL MCH 25.0 L (27.0-32.0) pg MCHC 31.9 (31.0-37.0) g/dL RDW Std Deviation 43.3 (28.0-62.0) fl RDW Coeff of Devon 15 (11.0-15.0) % Plt Count 273 (150-400) K/uL MPV 9.80 (7.40-12.00) fL Nucleated RBC % 0.0 /100WBC Nucleated RBCs # 0 K/uL Blood Type B POSITIVE Antibody Screen NEGATIVE Med Orders - Current: Current Medications Butorphanol Tartrate (Stadol) 1 mg IVPUSH Q1H PRN PRN Reason: Pain Carboprost Tromethamine (Hemabate Ds) 250 mcg IM ASDIRECTED PRN PRN Reason: Post Hemorrhage Oxytocin/Sodium Chloride (Oxytocin 30 Unit/500 Ml-Ns) 30 unit in 500 mls @ 2 mls/hr IV TITRATE ASIYA; Protocol Last Titration: 01/22/20 14:03 Dose: 20 munits/min, 20 mls/hr Lactated Ringer's (Ringers, Lactated) 1,000 mls @ 150 mls/hr IV ASDIRECTED ASIYA Last Admin: 01/22/20 15:15 Dose: 150 mls/hr Oxytocin/Sodium Chloride (Oxytocin 30 Unit/500 Ml-Ns) 30 unit in 500 mls @ 500 mls/hr IV TITRATE ASIYA Tranexamic Acid 1,000 mg/ (Sodium Chloride) 110 mls @ 660 mls/hr IV ONETIME PRN PRN Reason: Bleeding Lidocaine HCl (Xylocaine 1%) 50 ml INJECT ONETIME PRN PRN Reason: Laceration repair Methylergonovine Maleate (Methergine) 0.2 mg IM ASDIRECTED PRN PRN Reason: Post Hemorrhage Misoprostol (Cytotec) 25 mcg VAG ONETIME PRN PRN Reason: Cervical Ripening Last Admin: 01/22/20 02:27 Dose: 25 mcg Misoprostol (Cytotec) 25 mcg VAG Q4H PRN PRN Reason: Cervical Ripening Misoprostol (Cytotec) 200 mcg PO ONETIME PRN PRN Reason: Post Hemorrhage Nalbuphine HCl (Nubain) 10 mg IVPUSH Q1H PRN PRN Reason: Pain (severe 7-10) Sodium Chloride (Saline Flush) 10 ml FLUSH ASDIRECTED PRN PRN Reason: Keep Vein Open Sodium Chloride (Saline Flush) 2.5 ml FLUSH ASDIRECTED PRN PRN Reason: Keep Vein Open Sodium Chloride (Normal Saline) 10 ml IV ASDIRECTED PRN PRN Reason: IV Use Sterile Water (Sterile Water For Irrigation) 1,000 ml IRR ASDIRECTED PRN PRN Reason: delivery Terbutaline Sulfate (Brethine) 0.25 mg SUBCUT ASDIRECTED PRN PRN Reason: Tacysystole Discontinued Medications Fentanyl (Sublimaze) Confirm Administered Dose 100 mcg .ROUTE .STK-MED ONE Stop: 01/22/20 08:18 Ropivacaine (Naropin 0.2%) Confirm Administered Dose 100 mls @ as directed .ROUTE .STK-MED ONE Stop: 01/22/20 08:18 Oxytocin/Sodium Chloride (Oxytocin 30 Unit/500 Ml-Ns) Confirm Administered Dose 30 unit in 500 mls @ as directed .ROUTE .STK-MED ONE Stop: 01/22/20 10:11 Lidocaine HCl (Xylocaine 1%) Confirm Administered Dose 50 ml .ROUTE .STK-MED ONE Stop: 01/22/20 08:34 Misoprostol (Cytotec) 25 mcg PO ONETIME ONE Stop: 01/22/20 01:49 Last Admin: 01/22/20 02:27 Dose: 25 mcg - Exam General: Alert, Oriented, Cooperative, No Acute Distress Lungs: Normal Respiratory Effort Cardiovascular: Regular Rhythm GI/Abdominal Exam: Soft, Non-Tender (Female) Exam: Normal External Exam, Normal Bimanual Exam Extremities: Normal Inspection, Normal Capillary Refill Skin: Warm, Dry, Intact Neurological: No New Focal Deficit, Normal Speech Psy/Mental Status: Alert, Normal Affect, Normal Mood - Problem List & Annotations (1) (spontaneous vaginal delivery) SNOMED Code(s): 785124137 Code(s): O80 - ENCOUNTER FOR FULL-TERM UNCOMPLICATED DELIVERY Status: Acute Priority: High Current Visit: Yes - Problem List Review Problem List Initiated/Reviewed/Updated: Yes - Plan Plan:: IOL A: 19yo EDC 01/21/2020 40 1/7wks. IOL term and occ elevated BP. B+, RI, GBS neg. P: Admit, Cytotec to pitocin. AROM clear fluid. Epidural now. Anticipate . Dr Flynn and Dora Salazar CNM updated on pt care. Martin to take over care. DELIVERY A: viable female at 40 1/7 weeks. Weight and APGARs pending. Placenta delivered grossly intact, 3VC, EBL 500 mL. Perineum intact. Bimanual exam normal. Pitocin to IVF. Fundus firm. Patient left in stable condition with nurse at bedside for assessment. P: Routine plan of care. Dr. Flynn updated.
[2020-01-22] MEDS ORDERED: Benzocaine/Menthol 20%-0.5% Spray 78 GM Cannister TOP PRN (17:26)
[2020-01-22] MEDS ORDERED: Acetaminophen 500 MG Tab PO PRN ×2 (17:26)
[2020-01-22] MEDS ORDERED: Docusate Sodium 100 MG Cap PO PRN (17:26)
[2020-01-22] MEDS ORDERED: Bisacodyl 10 MG Supp RECTAL PRN (17:26)
[2020-01-22] MEDS ORDERED: Ibuprofen 800 MG Tab PO PRN (17:26)
[2020-01-22] MEDS ORDERED: Ibuprofen 400 MG Tab PO PRN (17:26)
[2020-01-22] MEDS ORDERED: oxyCODONE 5 MG Tab PO PRN (17:26)
[2020-01-22] MEDS ORDERED: Lanolin 100% Cream 7 GM Tube TOP PRN (17:26)
[2020-01-22] MEDS ORDERED: Witch Hazel Medicated Pads 40/Jar TOP PRN (17:26)
[2020-01-22] MEDS ORDERED: hydrOXYzine Pamoate 25 MG Cap PO PRN (21:15)
--- NOTE | 2020-01-23 07:38 | PCM48HPAN ---
Post Anesthesia Note - EVALUATION WITHIN 48HRS OF ANESTHETIC Vital Signs in Normal Range: Yes Patient Participated in Evaluation: Yes Respiratory Function Stable: Yes Airway Patent: Yes Cardiovascular Function Stable: Yes Hydration Status Stable: Yes Pain Control Satisfactory: Yes Nausea and Vomiting Control Satisfactory: Yes Mental Status Recovered: Yes Vital Signs: Last Vital Signs Temp 35.7 C L 01/23/20 04:13 Pulse 91 01/23/20 04:13 Resp 16 01/23/20 04:13 BP 114/65 01/23/20 04:13 Pulse Ox 96 01/23/20 04:13
--- NOTE | 2020-01-23 09:12 | PCM.PNPP ---
- General Info Date of Service: 01/23/20 Admission Dx/Problem (Free Text): Patient Status Order with Admit Dx/Problem 01/22/20 02:09 Patient Status [ADT] Routine Admission Diagnosis/Problem Admission Diagnosis/Problem 01/22/20 08:14 19yo EDC 01/21/2020 40 1/7wks. IOL term and occ elevated BP. B+, RI, GBS neg. Functional Status: Reports: Pain Controlled, Tolerating Diet, Ambulating, Urinating - Review of Systems General: Reports: No Symptoms HEENT: Reports: No Symptoms Pulmonary: Reports: No Symptoms Cardiovascular: Reports: No Symptoms Gastrointestinal: Reports: No Symptoms Genitourinary: Reports: No Symptoms Musculoskeletal: Reports: No Symptoms Skin: Reports: No Symptoms Neurological: Reports: No Symptoms Psychiatric: Reports: No Symptoms - General Info Date of Service: 01/23/20 - Patient Data Vital Signs - Most Recent: Last Vital Signs Temp 96.9 F 01/23/20 07:52 Pulse 99 01/23/20 07:52 Resp 16 01/23/20 07:52 BP 120/88 01/23/20 07:52 Pulse Ox 97 01/23/20 07:52 Weight - Most Recent: 236 lb Lab Results - Last 24 Hours: Laboratory Results - last 24 hr 01/23/20 Range/Units 06:00 Hgb 10.1 L (12.0-16.0) g/dL Hct 32.9 L (36.0-46.0) % Med Orders - Current: Current Medications Acetaminophen (Tylenol Extra Strength) 500 mg PO Q4H PRN PRN Reason: Pain Acetaminophen (Tylenol Extra Strength) 1,000 mg PO Q4H PRN PRN Reason: Pain Benzocaine/Menthol (Dermoplast Pain Relief 20%-0.5% [place]) 78 gm TOP ASDIRECTED PRN PRN Reason: Perineal Comfort Measure Last Admin: 01/22/20 20:11 Dose: 1 can Bisacodyl (Dulcolax) 10 mg RECTAL ONETIME PRN PRN Reason: Constipation Docusate Sodium (Colace) 100 mg PO BID PRN PRN Reason: Constipation Emollient Ointment (Lansinoh Hpa) 0 gm TOP ASDIRECTED PRN PRN Reason: Sore Nipples Hydroxyzine Pamoate (Vistaril) 25 mg PO BEDTIME PRN PRN Reason: Anxiety Last Admin: 01/22/20 23:32 Dose: 25 mg Ibuprofen (Motrin) 400 mg PO Q4H PRN PRN Reason: Pain Ibuprofen (Motrin) 800 mg PO Q6H PRN PRN Reason: Pain Last Admin: 01/22/20 20:09 Dose: 800 mg Oxycodone HCl (Oxycodone) 5 mg PO Q2H PRN PRN Reason: Pain Witch Suzy (Tucks) 1 pad TOP ASDIRECTED PRN PRN Reason: comfort care Last Admin: 01/22/20 20:10 Dose: 1 tub Discontinued Medications Butorphanol Tartrate (Stadol) 1 mg IVPUSH Q1H PRN PRN Reason: Pain Carboprost Tromethamine (Hemabate Ds) 250 mcg IM ASDIRECTED PRN PRN Reason: Post Hemorrhage Fentanyl (Sublimaze) Confirm Administered Dose 100 mcg .ROUTE .STK-MED ONE Stop: 01/22/20 08:18 Oxytocin/Sodium Chloride (Oxytocin 30 Unit/500 Ml-Ns) 30 unit in 500 mls @ 2 mls/hr IV TITRATE ASIYA; Protocol Last Titration: 01/22/20 16:56 Dose: 999 munits/min, 999 mls/hr Lactated Ringer's (Ringers, Lactated) 1,000 mls @ 150 mls/hr IV ASDIRECTED ASIYA Last Admin: 01/22/20 15:15 Dose: 150 mls/hr Oxytocin/Sodium Chloride (Oxytocin 30 Unit/500 Ml-Ns) 30 unit in 500 mls @ 500 mls/hr IV TITRATE ASIYA Last Admin: 01/22/20 17:25 Dose: 500 mls/hr Tranexamic Acid 1,000 mg/ (Sodium Chloride) 110 mls @ 660 mls/hr IV ONETIME PRN PRN Reason: Bleeding Ropivacaine (Naropin 0.2%) Confirm Administered Dose 100 mls @ as directed .ROUTE .STK-MED ONE Stop: 01/22/20 08:18 Oxytocin/Sodium Chloride (Oxytocin 30 Unit/500 Ml-Ns) Confirm Administered Dose 30 unit in 500 mls @ as directed .ROUTE .STK-MED ONE Stop: 01/22/20 10:11 Oxytocin/Sodium Chloride (Oxytocin 30 Unit/500 Ml-Ns) Confirm Administered Dose 30 unit in 500 mls @ as directed .ROUTE .STK-MED ONE Stop: 01/22/20 17:22 Lidocaine HCl (Xylocaine 1%) 50 ml INJECT ONETIME PRN PRN Reason: Laceration repair Lidocaine HCl (Xylocaine 1%) Confirm Administered Dose 50 ml .ROUTE .STK-MED ONE Stop: 01/22/20 08:34 Methylergonovine Maleate (Methergine) 0.2 mg IM ASDIRECTED PRN PRN Reason: Post Hemorrhage Misoprostol (Cytotec) 25 mcg VAG ONETIME PRN PRN Reason: Cervical Ripening Last Admin: 01/22/20 02:27 Dose: 25 mcg Misoprostol (Cytotec) 25 mcg VAG Q4H PRN PRN Reason: Cervical Ripening Misoprostol (Cytotec) 25 mcg PO ONETIME ONE Stop: 01/22/20 01:49 Last Admin: 01/22/20 02:27 Dose: 25 mcg Misoprostol (Cytotec) 200 mcg PO ONETIME PRN PRN Reason: Post Hemorrhage Nalbuphine HCl (Nubain) 10 mg IVPUSH Q1H PRN PRN Reason: Pain (severe 7-10) Sodium Chloride (Saline Flush) 10 ml FLUSH ASDIRECTED PRN PRN Reason: Keep Vein Open Sodium Chloride (Saline Flush) 2.5 ml FLUSH ASDIRECTED PRN PRN Reason: Keep Vein Open Sodium Chloride (Normal Saline) 10 ml IV ASDIRECTED PRN PRN Reason: IV Use Sterile Water (Sterile Water For Irrigation) 1,000 ml IRR ASDIRECTED PRN PRN Reason: delivery Terbutaline Sulfate (Brethine) 0.25 mg SUBCUT ASDIRECTED PRN PRN Reason: Tacysystole - Infant Interaction Infant Disposition, : in Room with Family Infant Interaction: Holding Infant Infant Feeding: Bottle Fed Infant (Pumping ) Support Person: Significant Other - Recovery Exam Fundal Tone: Firm Fundal Level: 1 Fingerbreadths Below Umbilicus Fundal Placement: Midline Lochia Amount: Scant Lochia Color: Rubra/Red Perineum Description: Intact, Minimal Bruising/Swelling Episiotomy/Laceration: None Bladder Status: Voiding Urinary Elimination: Voided - Exam General: Alert, Oriented, Cooperative, No Acute Distress Lungs: Normal Respiratory Effort Cardiovascular: Regular Rhythm GI/Abdominal Exam: Soft, Non-Tender Extremities: Normal Inspection, Normal Range of Motion, Non-Tender, Normal Capillary Refill Skin: Warm, Dry, Intact Neurological: No New Focal Deficit, Normal Gait, Normal Speech, Normal Tone, Sensation Intact Psy/Mental Status: Alert, Normal Affect, Normal Mood - Problem List & Annotations (1) (spontaneous vaginal delivery) SNOMED Code(s): 058702034 Code(s): O80 - ENCOUNTER FOR FULL-TERM UNCOMPLICATED DELIVERY Status: Acute Priority: High Current Visit: Yes - Problem List Review Problem List Initiated/Reviewed/Updated: Yes - My Orders Last 24 Hours: My Active Orders 01/22/20 17:26 Patient Status [ADT] Routine May Shower [RC] ASDIRECTED Up ad [place] [RC] ASDIRECTED Vital Signs [RC] PER UNIT ROUTINE Acetaminophen [Tylenol Extra Strength] 1,000 mg PO Q4H PRN Acetaminophen [Tylenol Extra Strength] 500 mg PO Q4H PRN Benzocaine/Menthol [Dermoplast Pain Relief 20%-0.5% [place]] 78 gm TOP ASDIRECTED PRN Docusate Sodium [Colace] 100 mg PO BID PRN Ibuprofen [Motrin] 400 mg PO Q4H PRN Ibuprofen [Motrin] 800 mg PO Q6H PRN Lanolin [Lansinoh HPA] See Dose Instructions TOP ASDIRECTED PRN bisacodyL [Dulcolax] 10 mg RECTAL ONETIME PRN oxyCODONE 5 mg PO Q2H PRN witch Suzy [Tucks] 1 pad TOP ASDIRECTED PRN Assess Lochia [WOMSER] Per Unit Routine Assess Uterine Involution [WOMSER] Per Unit Routine Peripheral IV Discontinue [OM.PC] Routine Resuscitation Status Routine 01/22/20 21:15 hydrOXYzine pamoate [Vistaril] 25 mg PO BEDTIME PRN - Plan Plan:: IOL A: 19yo EDC 01/21/2020 40 1/7wks. IOL term and occ elevated BP. B+, RI, GBS neg. P: Admit, Cytotec to pitocin. AROM clear fluid. Epidural now. Anticipate . Dr Flynn and Dora Salazar CNM updated on pt care. Martin to take over care. DELIVERY A: viable female infant at 40 1/7 weeks. Weight and APGARs pending. Placenta delivered grossly intact, 3VC, EBL 500 mL. Perineum intact. Bimanual exam normal. Pitocin to IVF. Fundus firm. Patient left in stable condition with nurse at bedside for assessment. P: Routine plan of care. Dr. Flynn updated. PP Day 1 A: ambulating, urinating, small lochia rubra, tolerating diet, pumping to feed , reports doing well, bonding well with baby P: Routine plan of care. Dr. Flynn updated.
--- NOTE | 2020-01-24 08:34 | PCM.DCSUM1 ---
Discharge Summary - Hospital Course Free Text/Narrative:: Discharge home with baby. Follow up in 6 weeks in the clinic for routine plan of care. Diagnosis: Stroke: No Modified Yaritza Scale: No Symptoms at All Modified Traill Scale Score: 0 - Discharge Data Discharge Date: 01/24/20 Discharge Disposition: Home, Self-Care 01 Condition: Good - Referral to Home Health Primary Care Physician: PCP None - Discharge Diagnosis/Problem(s) (1) (spontaneous vaginal delivery) SNOMED Code(s): 903093737 ICD Code: O80 - ENCOUNTER FOR FULL-TERM UNCOMPLICATED DELIVERY Status: Acute Priority: High Current Visit: Yes - Patient Instructions Diet: Regular Diet as Tolerated, Drink 8-10+ Glasses/Day Activity: As Tolerated, No Strenuous Activities, Rest and Relax Today Driving: May Drive Today Showering/Bathing: May Shower Notify Provider of: Fever, Increased Pain, Swelling and Redness, Drainage, Nausea and/or Vomiting - Discharge Plan *PRESCRIPTION DRUG MONITORING PROGRAM REVIEWED*: Not Applicable *COPY OF PRESCRIPTION DRUG MONITORING REPORT IN PATIENT LAUREN: Not Applicable Prescriptions/Med Rec: Ibuprofen [Motrin] 800 mg PO Q6H PRN #90 tablet PRN Reason: Pain Home Medications: Home Meds Vits #93/Iron Fum/FA [ Formula Tablet] 1 each PO DAILY [History] Aspirin 81 mg PO DAILY 30 Days #30 tab.chew 01/08/20 [Rx] Ibuprofen [Motrin] 800 mg PO Q6H PRN #90 tablet 01/24/20 [Rx] Oxygen Therapy Mode: Room Air Patient Handouts: Baby Blues, Breast Pumping Tips, [id number], Care After Vaginal Delivery - Discharge Summary/Plan Comment DC Time >30 min.: Yes - General Info Date of Service: 01/24/20 Admission Dx/Problem (Free Text: Patient Status Order with Admit Dx/Problem 01/22/20 02:09 Patient Status [ADT] Routine Admission Diagnosis/Problem Admission Diagnosis/Problem 01/22/20 08:14 19yo EDC 01/21/2020 40 1/7wks. IOL term and occ elevated BP. B+, RI, GBS neg. Functional Status: Reports: Pain Controlled, Tolerating Diet, Ambulating, Urinating - Review of Systems General: Reports: No Symptoms HEENT: Reports: No Symptoms Pulmonary: Reports: No Symptoms Cardiovascular: Reports: No Symptoms Gastrointestinal: Reports: No Symptoms Genitourinary: Reports: No Symptoms Musculoskeletal: Reports: No Symptoms Skin: Reports: No Symptoms Neurological: Reports: No Symptoms Psychiatric: Reports: No Symptoms - Patient Data Vitals - Most Recent: Last Vital Signs Temp 97.6 F 01/24/20 08:00 Pulse 85 01/24/20 08:00 Resp 16 01/24/20 08:00 BP 123/69 01/24/20 08:00 Pulse Ox 97 01/24/20 08:00 Weight - Most Recent: 236 lb Med Orders - Current: Current Medications Acetaminophen (Tylenol Extra Strength) 500 mg PO Q4H PRN PRN Reason: Pain Acetaminophen (Tylenol Extra Strength) 1,000 mg PO Q4H PRN PRN Reason: Pain Benzocaine/Menthol (Dermoplast Pain Relief 20%-0.5% [place]) 78 gm TOP ASDIRECTED PRN PRN Reason: Perineal Comfort Measure Last Admin: 01/22/20 20:11 Dose: 1 can Bisacodyl (Dulcolax) 10 mg RECTAL ONETIME PRN PRN Reason: Constipation Docusate Sodium (Colace) 100 mg PO BID PRN PRN Reason: Constipation Last Admin: 01/24/20 08:28 Dose: 100 mg Emollient Ointment (Lansinoh Hpa) 0 gm TOP ASDIRECTED PRN PRN Reason: Sore Nipples Last Admin: 01/24/20 05:41 Dose: 7 gm Hydroxyzine Pamoate (Vistaril) 25 mg PO BEDTIME PRN PRN Reason: Anxiety Last Admin: 01/22/20 23:32 Dose: 25 mg Ibuprofen (Motrin) 400 mg PO Q4H PRN PRN Reason: Pain Ibuprofen (Motrin) 800 mg PO Q6H PRN PRN Reason: Pain Last Admin: 01/22/20 20:09 Dose: 800 mg Oxycodone HCl (Oxycodone) 5 mg PO Q2H PRN PRN Reason: Pain Witch Suzy (Tucks) 1 pad TOP ASDIRECTED PRN PRN Reason: comfort care Last Admin: 01/22/20 20:10 Dose: 1 tub Discontinued Medications Butorphanol Tartrate (Stadol) 1 mg IVPUSH Q1H PRN PRN Reason: Pain Carboprost Tromethamine (Hemabate Ds) 250 mcg IM ASDIRECTED PRN PRN Reason: Post Hemorrhage Fentanyl (Sublimaze) Confirm Administered Dose 100 mcg .ROUTE .STK-MED ONE Stop: 01/22/20 08:18 Oxytocin/Sodium Chloride (Oxytocin 30 Unit/500 Ml-Ns) 30 unit in 500 mls @ 2 mls/hr IV TITRATE ASIYA; Protocol Last Titration: 01/22/20 16:56 Dose: 999 munits/min, 999 mls/hr Lactated Ringer's (Ringers, Lactated) 1,000 mls @ 150 mls/hr IV ASDIRECTED ASIYA Last Admin: 01/22/20 15:15 Dose: 150 mls/hr Oxytocin/Sodium Chloride (Oxytocin 30 Unit/500 Ml-Ns) 30 unit in 500 mls @ 500 mls/hr IV TITRATE ASIYA Last Admin: 01/22/20 17:25 Dose: 500 mls/hr Tranexamic Acid 1,000 mg/ (Sodium Chloride) 110 mls @ 660 mls/hr IV ONETIME PRN PRN Reason: Bleeding Ropivacaine (Naropin 0.2%) Confirm Administered Dose 100 mls @ as directed .ROUTE .STK-MED ONE Stop: 01/22/20 08:18 Oxytocin/Sodium Chloride (Oxytocin 30 Unit/500 Ml-Ns) Confirm Administered Dose 30 unit in 500 mls @ as directed .ROUTE .STK-MED ONE Stop: 01/22/20 10:11 Oxytocin/Sodium Chloride (Oxytocin 30 Unit/500 Ml-Ns) Confirm Administered Dose 30 unit in 500 mls @ as directed .ROUTE .STK-MED ONE Stop: 01/22/20 17:22 Lidocaine HCl (Xylocaine 1%) 50 ml INJECT ONETIME PRN PRN Reason: Laceration repair Lidocaine HCl (Xylocaine 1%) Confirm Administered Dose 50 ml .ROUTE .STK-MED ONE Stop: 01/22/20 08:34 Methylergonovine Maleate (Methergine) 0.2 mg IM ASDIRECTED PRN PRN Reason: Post Hemorrhage Misoprostol (Cytotec) 25 mcg VAG ONETIME PRN PRN Reason: Cervical Ripening Last Admin: 01/22/20 02:27 Dose: 25 mcg Misoprostol (Cytotec) 25 mcg VAG Q4H PRN PRN Reason: Cervical Ripening Misoprostol (Cytotec) 25 mcg PO ONETIME ONE Stop: 01/22/20 01:49 Last Admin: 01/22/20 02:27 Dose: 25 mcg Misoprostol (Cytotec) 200 mcg PO ONETIME PRN PRN Reason: Post Hemorrhage Nalbuphine HCl (Nubain) 10 mg IVPUSH Q1H PRN PRN Reason: Pain (severe 7-10) Sodium Chloride (Saline Flush) 10 ml FLUSH ASDIRECTED PRN PRN Reason: Keep Vein Open Sodium Chloride (Saline Flush) 2.5 ml FLUSH ASDIRECTED PRN PRN Reason: Keep Vein Open Sodium Chloride (Normal Saline) 10 ml IV ASDIRECTED PRN PRN Reason: IV Use Sterile Water (Sterile Water For Irrigation) 1,000 ml IRR ASDIRECTED PRN PRN Reason: delivery Terbutaline Sulfate (Brethine) 0.25 mg SUBCUT ASDIRECTED PRN PRN Reason: Tacysystole - Exam General: Reports: Alert, Oriented, Cooperative, No Acute Distress Lungs: Reports: Clear to Auscultation, Normal Respiratory Effort Cardiovascular: Reports: Regular Rate, Regular Rhythm GI/Abdominal Exam: Soft, Non-Tender (Female) Exam: Deferred Rectal (Female) Exam: Deferred Back Exam: Reports: Normal Inspection, Full Range of Motion Extremities: Normal Inspection, Normal Range of Motion, Non-Tender, Normal Capillary Refill Skin: Reports: Warm, Dry, Intact Neurological: Reports: No New Focal Deficit, Normal Gait, Normal Speech, Normal Tone, Strength Equal Bilateral, Sensation Intact Psy/Mental Status: Reports: Alert, Normal Affect, Normal Mood
== END 2020-01-24 10:45 | disposition home or self-care (01) | DRG 560 ==
LOC: MW.OBCHECK 01:30 → MW.OB 01:31 → MW.OBCHECK 02:09 → OBSVTOIN 16:54 → MW.OB 21:29
PROVIDERS: ADMIT Obstetrics & Gynecology; ATTEND Obstetrics & Gynecology
PROC: 10E0XZZ Delivery of Products of Conception, External Approach (ICD-10-PCS; principal; 2020-01-22)
PROC: 10907ZC Drainage of Amniotic Fluid, Therapeutic from Products of Conception, Via Natural or Artificial Opening (ICD-10-PCS; 2020-01-22)
PROC: 3E0P7VZ Introduction of Hormone into Female Reproductive, Via Natural or Artificial Opening (ICD-10-PCS; 2020-01-22)
PROC: 3E0S3BZ Introduction of Anesthetic Agent into Epidural Space, Percutaneous Approach (ICD-10-PCS; 2020-01-22)
DX: O48.0 Post-term pregnancy (principal); Z3A.40 40 weeks gestation of pregnancy; Z37.0 Single live birth; O99.214 Obesity complicating childbirth; E66.9 Obesity, unspecified; O69.81X0 Labor and delivery complicated by cord around neck, without compression, not applicable or unspecified
CPT/HCPCS: 01967; 36415; 51702; 59025; 59409; 85014; 85018; 85027; 86592; 86593; 86850; 86900; 86901; A9270-GY; J2001; J2590; J2795; J3010; J7120